=== PATIENT | male | born 1940 | race Caucasian/White ===

== ENCOUNTER 2017-03-25 15:55 | Observation (INO) | payer OTHER ==
--- NOTE | ~2017-03-25 | HP ---
History And Physical [place] [id number] [facility] [place]. [address] NAME: MALIK COOPER : 42 STATUS : ADM Laura PAT#: [id number] AGE: 76 ADM/REG DATE : 03/25/17 MR#: [id number] REPORT SERV DATE: 03/25/17 DICTATED BY: KARAN GUARDADO DATE: 03/25/17 REPORT STATUS : Draft TRANSCRIBED BY: MODL DATE: 03/25/17 DATE OF ADMISSION: 03/25/2017 CHIEF COMPLAINT: Possible stroke. HISTORY OF PRESENT ILLNESS: Obtained from patient, patient's family present at bedside, and emergency room documents, also, prior medical records available to us were thoroughly reviewed as well as the records sent over with the patient from Dr. Pennington's office, who had sent the patient to the emergency room. According to the information available, the patient is a pleasant 76-year-old white man with known history of Parkinson disease, hyperlipidemia, as well as hypertension, chronic anticoagulation, mitral valve replacement, and atrial fibrillation, who was in Dr. Pennington's office today for scheduled regular followup. The patient started to complain with numbness and left upper arm pain at 14:45 p.m., and therefore, Dr. Pennington had sent the patient to the emergency room for possible CVA versus TIA. In the emergency room, the patient was investigated and a code stroke was triggered with further investigation as directed by the protocol and by the Neurology consult present here with a CT scan of the head/brain as well as further investigation. Note that the patient was not a candidate for tPA due to his INR being 2.9 with improving of his symptoms at the time of emergency room evaluation and stay. Therefore, after the above workup and evaluation, the patient was referred to the Hospitalist Service for further management and evaluation. Presently, the patient denies any headache, denies any focal weakness, stated his numbness on the left upper extremity has 90% improved. Denies any chest pain or any palpitations. Denies any fever, chills, diaphoresis, or any new change in his regular medications. The patient denies any coughing, any dizziness, any seizure-like activity, or any weakness. No nausea or vomiting. PAST MEDICAL HISTORY: As above. 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 PAST SURGICAL HISTORY: Significant for mitral valve replacement in 08/2008, bioprosthetic valve; significant for cardiac ablation in 2008 and pacemaker placement afterwards; significant for hernia repair x4, last in 08/2008; bilateral leg vein stripping in 2008; partial prostatectomy for cancer in 2009; cholecystectomy in 2010; colonoscopy, EUS, endoscopy in 05/2014, with colon and rectal excision for cancer in 2013; subsequently the patient had another colonoscopy with polyp removal followed by Dr. Gustafson in GI. SOCIAL HISTORY: The patient is single, lives alone. He has family that helps him and takes care of him. Denies tobacco abuse, but he used to smoke in the past. Denies alcohol abuse, History And Physical [address] [address] NAME: MALIK COOPER : 42 STATUS : ADM Laura PAT#: [id number] AGE: 76 ADM/REG DATE : 03/25/17 MR#: [id number] REPORT SERV DATE: 03/25/17 DICTATED BY: KARAN GUARDADO DATE: 03/25/17 REPORT STATUS : Draft TRANSCRIBED BY: MODL DATE: 03/25/17 but also had a history of prior alcohol abuse. Denies illicit recreational drug abuse. REVIEW OF SYSTEMS: Per H and P, otherwise negative in all review of systems. Please note that the comprehensive review of system was obtained and pertinent positives are included in the H and P. ALLERGIES: NO KNOWN DRUG ALLERGIES. MEDICATIONS AT HOME: According to the list provided, the patient is supposed to take amantadine 100 mg p.o. daily, Robinul 1 mg p.o. b.i.d., Antivert 25 mg p.o. t.i.d., Toprol- XL 25 mg p.o. daily, Myrbetriq 25 mg p.o. daily., Pravachol 10 mg p.o. at bedtime, Maxzide 25 (37.5/25) one tablet p.o. b.i.d., and Nuplazid 34 mg p.o. daily, Coumadin 2 mg p.o. at bedtime or as directed. Please note also the patient reportedly takes Sinemet 25/100 one p.o. q.i.d., vitamin E 400 units p.o. daily, as well as magnesium oxide 400 mg p.o. daily. PHYSICAL EXAMINATION: GENERAL: Pleasant, cooperant, presently in no acute distress. VITAL SIGNS: Upon arrival in the emergency room, blood pressure 142/69, pulse 69, respiratory rate 16, temperature 97.1, oxygen saturation 98% in room air. HEENT: Bilateral cataracts. Extraocular movements intact. Throat, mild erythema. No exudate. No signs of tenderness. Atraumatic. NECK: Supple. No JVD. No bruits. No thyromegaly. No lymph nodes. LUNGS: Bilateral air entry with few bibasilar crackles. No wheezing. Left subclavicular pacemaker in place. HEART: Positive S1, S2. Regular rate and rhythm. Positive soft mitral regurgitation murmur at the apex. No rub. No gallop. PMI not displaced by palpation. ABDOMEN: Positive bowel sounds. Soft, nontender. No guarding. No hepatosplenomegaly. EXTREMITIES: Decreased range of motion. Osteoarthritic changes. No clubbing. No cyanosis. No edema. No calf tenderness. +1 pulses. NEUROLOGIC: Alert and oriented x3. Appropriate mood and affect. His left upper extremity 4 to 5/5 distal strength, otherwise quite symmetric and similar with right upper extremity. Otherwise, neurologic exam nonfocal with deep tendon reflexes 2/2 symmetrical bilateral, coordination mildly off [id number] but symmetrical bilateral, subjective decrease to pinprick and light touch. Left upper extremities with more paresthesias than lack of sensation, mild ataxia noticed as well. BACK: Decreased range of motion. No focal localized tenderness. No CVA tenderness. SKIN: No bruises. No rashes. No lacerations. SIGNIFICANT LABORATORY DATA: Chest x-ray (personal reading) showed no acute infiltrate. EKG (personal reading) showed ventricular paced rhythm at 67. No further analysis possible. White cell count 4.4, hemoglobin 14.8, platelet count 113, INR 2.9. Sodium 133, potassium 3.7, chloride 100, bicarb 31, BUN 14, creatinine 0.85, glucose 94, calcium 9. Liver function tests within normal limits. Troponin I was 0.02. CT scan of the head/brain with a stroke protocol showed no acute intracranial abnormality. Moderate cortical volume loss with [id number] chronic deep white matter ischemic changes (minimally progressed since 05/2014). History And Physical [address] [address] NAME: MALIK COOPER : 42 STATUS : ADM Laura PAT#: [id number] AGE: 76 ADM/REG DATE : 03/25/17 MR#: [id number] REPORT SERV DATE: 03/25/17 DICTATED BY: KARAN GUARDADO DATE: 03/25/17 REPORT STATUS : Draft TRANSCRIBED BY: MODL DATE: 03/25/17 ASSESSMENT AND PLAN/PROBLEM LIST: The patient is a pleasant 76-year-old white man admitted with symptoms suggestive of possible CVA versus transient ischemic attack, presently improving. Not a candidate for tPA due to his elevated INR. IMPRESSION: 1. Neurologic problem. a. Left arm numbness, paresthesia, and possible weakness with diagnosis of possible acute CVA versus transient ischemic attack. b. Parkinson disease. c. Chronic ischemic white matter disease. For all the above, patient has been admitted on the Hospitalist Service under neurologic stroke unit with neurologic checks as per Neurology evaluation. We are going to continue blood pressure control. We are going to continue anticoagulation with Coumadin and add as tolerated aspirin/antiplatelet agent 81 mg daily. We are going to increase Pravachol if tolerated for statin therapy. Continue neurologic checks, Physical Therapy evaluation. 1. Cardiovascular. a. Hypertension, essential hypertension. b. Arrhythmia with chronic atrial fibrillation, present on admission, status post permanent pacemaker placement for AV block. c. Status post mitral valve replacement, bioprosthetic for mitral valve regurgitation in the past. d. Peripheral vascular disease and history of carotid artery disease. For all the above, we are going to continue patient's blood pressure management with rather "permissive hypertension" for now with use IV hydralazine p.r.n. for extreme elevated blood pressure. We are going to continue to monitor CK and troponin I, monitor EKG. Add aspirin 81 mg daily at home dose. 1. Hematologic problem:. a. Chronic anticoagulation, on Coumadin for atrial fibrillation, to be continued, target INR between 2 and 3. b. Thrombocytopenia as well as mild neutropenia, chronic and presently stable. 2. Endocrinologic problem:. a. Hyperlipidemia, mixed type. Continue Pravachol, check lipid profile. b. Diabetes type 2, diet controlled. Not insulin-dependent without complications. We are going to monitor blood sugar with fingerstick for now, sliding scale as needed. Check hemoglobin A1c. 3. Miscellaneous:. a. History of colon cancer. b. History of prostate cancer. PROGNOSIS: Moderately good for this admission. Discussed with patient. Questions were answered in full. Please note, also the written H and P, and written orders and instructions. Please note, the patient is a full code at this moment, was discussed with the patient at bedside. History And Physical [address] [address] NAME: MALIK COOPER : 42 STATUS : ADM Laura PAT#: [id number] AGE: 76 ADM/REG DATE : 03/25/17 MR#: [id number] REPORT SERV DATE: 03/25/17 DICTATED BY: KARAN GUARDADO DATE: 03/25/17 REPORT STATUS : Draft TRANSCRIBED BY: CLYDE DATE: 03/25/17 RF/CLYDE Karan Guardado M.D. / [id number] CC: Joseluis Moore M.D. Alexander Stratienko, M.D. Cornelius Mance, M.D.
--- NOTE | ~2017-03-25 | DS ---
Discharge Summary [place] [id number] [place]. [address] NAME: MALIK COOPER : 42 STATUS : DIS Laura PAT#: [id number] AGE: 76 ADM/REG DATE : 03/25/17 MR#: [id number] REPORT SERV DATE: 03/30/17 DICTATED BY: LUZ CASTANEDA DATE: 03/27/17 REPORT STATUS : Draft TRANSCRIBED BY: CLYDE DATE: 03/27/17 ADMISSION DATE: 03/25/2017 DISCHARGE DATE: 03/27/2017 DISCHARGE DIAGNOSES: 1. Transient ischemic attack. 2. Left arm paresthesia, resolved. 3. Chronic ischemic cerebrovascular accident. 4. Parkinson disease. 5. Hypertension. 6. Chronic atrial fibrillation, status post permanent pacemaker for atrioventricular block. 7. Status post mitral valve replacement with a bioprosthetic valve. 8. History of carotid artery disease. 9. Hyperlipidemia. 10.Diabetes mellitus type 2. 11.History of colon cancer. 12.History of prostate cancer. DISCHARGE CONDITION: Stable. CONSULTATION: Neurology, Dr. Gorman. IMAGING: CT head and neck: 1. No acute intracranial abnormality appreciated. 2. Moderate cortical volume loss and findings compatible with [id number] chronic deep white matter ischemic changes. CTA head and neck. Impression: 1. Unremarkable appearance of the intracranial arterial circulation. 2. No acute intracranial abnormality appreciated. 3. Moderate cortical volume loss and findings compatible with chronic deep white matter ischemic changes. 4. Widely patent carotid and vertebral arteries bilaterally. There is minimal calcific plaque at the carotid bulbs bilaterally which is nonobstructing. HISTORY OF PRESENT ILLNESS: For detailed HPI, make reference to Dr. Karan Guardado's dictation on 03/25/2017. In brief, this is a 76-year-old male with medical history of Parkinson disease, hyperlipidemia, hypertension, on chronic anticoagulation for mitral valve replacement and chronic atrial fibrillation, who presented to Dr. Pennington's office (primary rotary engraver) for routine followup. While at his primary rotary engraver's office, complained of numbness of the left upper arm and weakness. He was sent to the emergency room for CVA versus TIA rule out. In the ER, the patient underwent a CT scan of the head and brain that shows no evidence of acute cerebrovascular accident. The patient was noted not to be a tPA candidate as his INR was 2.9. In the ER, vital signs; blood pressure was 142/69, pulse rate was 69, respiratory rate was 16, temperature was 97.1, saturating 98% on room air. Physical exam was noted for left upper extremity of 5/5 strength and right lower Discharge Summary [place] [address] [facility] [place] [address] NAME: MALIK COOPER : 42 STATUS : DIS Laura PAT#: [id number] AGE: 76 ADM/REG DATE : 03/25/17 MR#: [id number] REPORT SERV DATE: 03/30/17 DICTATED BY: LUZ CASTANEDA DATE: 03/27/17 REPORT STATUS : Draft TRANSCRIBED BY: CLYDE DATE: 03/27/17 extremity also 5/5 strength. He was alert and oriented x3. Also noted was positive soft mitral regurgitation murmur. Rest of the exam was essentially within normal limits. The patient was admitted to the Hospitalist Service for TIA. HOSPITAL COURSE: 1. TIA. Neurology was consulted. Recommended to add aspirin and Plavix to the patient's medication. The patient's chronic anticoagulation was continued. The patient had no recrudescence of any focal deficit. At the time of discharge, only positive finding in neurological exam was resting tremor that was in keeping with the patient's known Parkinson disease. No focal deficit noted. The patient was discharged home to continue follow up with primary care physician, primary neurologist, and primary rotary engraver. 2. Chronic atrial fibrillation on chronic anticoagulation with warfarin. The patient's warfarin was continued during the course of this admission. At the time of discharge, the patient's INR was 3.3. The patient was advised to hold Coumadin for the next 24 hours and follow up with primary rotary engraver for INR check here before restarting and to recommence warfarin at the prescribed dose. DISCHARGE ACTIVITIES: As tolerated. Greater than 30 minutes was used to prepare this patient's discharge, reconcile medication, and advise the patient on discharge plans and followup. DICTATED BY: MD CHRISTIE Appiah/CLYDE Luz Castaneda MD / [id number] CC: MD Ann Appiah M.D.
[~2017-03-25 15:55] MED LIST: ASAB PO; C1 PO; C2 PO; CALCIUM + D OTC PO; CALTRAT600 PO; CHROMIUM PICOLINATE PO; ESTER-C500 MG PO; FISH-EPA1000 MG PO; FLAXSEED OIL1000 MG PO; FLOMAX4 PO; FOLIC ACID800 MCG PO; HALF81 PO; K-TABS10 MEQ PO; K500 PO; KLOR-CON M2020 MEQ PO; L40 PO; LOM PO; LOP50 PO; LORTAB 5 PO; MAX25 PO; MAXZIDE PO; MCZ25 PO; MULTIPLE VIT PO; MULTIVIT/MIN PO; MULTIVITAMI1 PO; MYRBETRIQ25 MG PO; PRAV10 PO; PRIN5 PO; SIN10 PO; SINCR25100 PO; STRESSTAB2 PO; TOPXL25 PO; TOPXL50 PO; VESICARE5 PO; VICODIN 5/325MG PO; VITAMIN C100 MG PO; VITAMIN D31000 UNIT PO; VITC500 PO; VITE PO
[2017-03-25 16:25] LABS: BASOPHILS 0.5 %; BASOPHILS ABSOLUTE 0.02 10/3/uL (0.0-0.16); EOSINOPHILS 2.3 %; ER CBC TAT 0 Hrs 03 Mins; HEMATOCRIT 42.5 % (40.0-51.0); HEMOGLOBIN 14.8 g/dL (13.6-17.8); IMMATURE GRANULOCYTES 0.2 %; IMMATURE GRANULOCYTES ABSOLUTE 0.01 10/3/uL (0.0-0.11); LYMPHOCYTES 31.4 %; LYMPHOCYTES ABSOLUTE 1.37 10/3/uL (0.67-4.30); MANUAL DIFF NO %; MEAN CORPUS HGB CONC 34.8 g/dL (32.0-36.0); MEAN CORPUSCULAR VOLUME 88.9 fL (80-100); MEAN PLATELET VOLUME 11.8 fL (9.2-13.0); MONOCYTES 10.6 %; MONOCYTES ABSOLUTE 0.46 10/3/uL (0.21-1.20); PLATELET COUNT 113 10/3/uL (150-400); RED CELL COUNT 4.78 10/6/uL (4.7-6.1); WHITE BLOOD CELLS 4.4 10/3/uL (4.5-10.5)
[2017-03-25 16:33] LABS: INTERNATIONAL NORMAL RATI 2.9 UNITS (-); PROTIME (NOT ORD) 30.1 SEC (12.0-14.5)
[2017-03-25 16:42] LABS: A/G RATIO 1.1 (0.7-1.9); ALBUMIN 3.9 G/DL (3.5-5.0); ALKALINE PHOSPHATASE 90 U/L (45-117); BUN (BLOOD UREA NITROGEN) 14 MG/DL (6-23); CHLORIDE, SERUM 100 MMOL/L (96-112); CO2 (CARBON DIOXIDE) 31 MMOL/L (24-34); CREATININE 0.85 MG/DL (0.70-1.30); GFR AFRICAN AMERICAN 99 ML/MIN (>=60); GFR NON AFRICAN AMERICAN 85 ML/MIN (>=60); GLOBULIN 3.5 G/DL (2.5-4.1); GLUCOSE, SERUM 94 MG/DL (60-99); POTASSIUM, SERUM 3.7 MMOL/L (3.5-5.3); SGOT(AST) 29 U/L (5-40); SGPT(ALT) 13 U/L (5-65); SODIUM, SERUM 138 MMOL/L (135-148); TOTAL BILIRUBIN 0.6 MG/DL (0-1.2); TOTAL PROTEIN 7.4 G/DL (6.0-8.5)
[2017-03-25] MEDS ORDERED: MYRBETRIQ25 MG PO (16:51)
[2017-03-25] MEDS ORDERED: LIPITOR40 PO (16:52)
[2017-03-25] MEDS ORDERED: SYMM100 PO (16:53)
[2017-03-25] MEDS ORDERED: NUPLAZID 17 MG PO (16:56)
[2017-03-25] MEDS ORDERED: ROB1T PO (16:57)
[2017-03-25] MEDS ORDERED: MAX25 PO (16:57)
[2017-03-25] MEDS ORDERED: TOPXL25 PO (16:57)
[2017-03-25] MEDS ORDERED: MCZ25 PO (16:58)
[2017-03-25] MEDS ORDERED: C2 PO (16:58)
[2017-03-25 17:06] LABS: TROPONIN I <0.02 NG/ML (<0.05)
[2017-03-25 22:34] LABS: TROPONIN I <0.02 NG/ML (<0.05)
[2017-03-25 22:37] LABS: CK-MB 1.6 NG/ML; CPK 212 U/L (0-200)
[2017-03-25 22:41] LABS: CHOL/HDL RATIO(NOT ORDER) 2.8 (0-5); CHOLESTEROL 122 MG/DL (< 200); HDL CHOLESTEROL 43 MG/DL (> 39); LDL CHOLESTEROL 23 MG/DL (< 130); NON-HDL CHOLESTEROL 79 MG/DL (< 160); PHOSPHORUS, SERUM 3.6 MG/DL (2.5-4.5); TRIGLYCERIDE 280 MG/DL (< 150)
[2017-03-25 22:44] LABS: FOLATE 29.9 NG/ML (>5.2)
[2017-03-25 23:09] LABS: WBC (NOT ORDERED) (RFLEX) 0 (0-5)
[2017-03-26 01:13] LABS: ASCORBIC ACID (UR NOT ORDER) NEG (NEG); BILIRUBIN, URINE NEGATIVE (NEG); KETONE, URINE NEGATIVE (NEG); LEUKOCYTE ESTERASE(NOT OR NEG (NEG)
[2017-03-26 08:13] LABS: INTERNATIONAL NORMAL RATI 3.2 UNITS (-); PROTIME (NOT ORD) 32.8 SEC (12.0-14.5)
[2017-03-26 08:41] LABS: TROPONIN I <0.02 NG/ML (<0.05)
[2017-03-26 08:43] LABS: CPK 109 U/L (0-200)
[2017-03-26 12:15] LABS: CREATININE 0.8 MG/DL (0.70-1.30)
[2017-03-26 14:57] LABS: CPK 111 U/L (0-200); TROPONIN I <0.02 NG/ML (<0.05)
[2017-03-26 14:58] LABS: CK-MB 0.9 NG/ML
[2017-03-27 07:25] LABS: BASOPHILS 0.6 %; BASOPHILS ABSOLUTE 0.02 10/3/uL (0.0-0.16); EOSINOPHILS ABSOLUTE 0.11 10/3/uL (0.0-0.53); HEMATOCRIT 40.3 % (40.0-51.0); HEMOGLOBIN 13.5 g/dL (13.6-17.8); LYMPHOCYTES 27.9 %; LYMPHOCYTES ABSOLUTE 1.01 10/3/uL (0.67-4.30); MANUAL DIFF NO %; MEAN CORPUS HGB CONC 33.5 g/dL (32.0-36.0); MEAN CORPUSCULAR HEMOGLOB 30.2 pg (26.0-34.0); MEAN CORPUSCULAR VOLUME 90.2 fL (80-100); MEAN PLATELET VOLUME 11.5 fL (9.2-13.0); MONOCYTES 9.7 %; MONOCYTES ABSOLUTE 0.35 10/3/uL (0.21-1.20); NEUTROPHILS 58.8 %; NEUTROPHILS ABSOLUTE 2.13 10/3/uL (2.02-8.40); PLATELET COUNT 100 10/3/uL (150-400); RBC DISTRIBUTION WIDTH 13.1 % (12.0-16.0); RED CELL COUNT 4.47 10/6/uL (4.7-6.1); WHITE BLOOD CELLS 3.6 10/3/uL (4.5-10.5)
[2017-03-27 07:33] LABS: INTERNATIONAL NORMAL RATI 3.3 UNITS (-); PROTIME (NOT ORD) 33.6 SEC (12.0-14.5)
[2017-03-27 07:41] LABS: BUN (BLOOD UREA NITROGEN) 15 MG/DL (6-23); CALCIUM, SERUM 8.5 MG/DL (8.5-10.4); CHLORIDE, SERUM 105 MMOL/L (96-112); CO2 (CARBON DIOXIDE) 28 MMOL/L (24-34); CREATININE 0.67 MG/DL (0.70-1.30); GFR AFRICAN AMERICAN 109 ML/MIN (>=60); GFR NON AFRICAN AMERICAN 94 ML/MIN (>=60); GLUCOSE, SERUM 86 MG/DL (60-99); PHOSPHORUS, SERUM 3.1 MG/DL (2.5-4.5); POTASSIUM, SERUM 3.7 MMOL/L (3.5-5.3); SODIUM, SERUM 141 MMOL/L (135-148)
[2017-03-27] MEDS ORDERED: ASAB PO (14:29)
== END 2017-03-27 16:12 | disposition home or self-care (01) ==
LOC: ER 15:55 → CDU1 18:35 → ER/OF 18:52 → 1SO 19:17
PROVIDERS: Emergency Medicine; Hospitalist; Internal Medicine
DX: G45.9 Transient cerebral ischemic attack, unspecified (principal); I10 Essential (primary) hypertension; I44.2 Atrioventricular block, complete; C18.9 Malignant neoplasm of colon, unspecified; I48.91 Unspecified atrial fibrillation; I34.0 Nonrheumatic mitral (valve) insufficiency; I65.23 Occlusion and stenosis of bilateral carotid arteries; M79.606 Pain in leg, unspecified; R06.00 Dyspnea, unspecified; I25.118 Atherosclerotic heart disease of native coronary artery with other forms of angina pectoris; E78.00 Pure hypercholesterolemia, unspecified; R53.83 Other fatigue; I99.8 Other disorder of circulatory system; I73.9 Peripheral vascular disease, unspecified; I42.8 Other cardiomyopathies; I48.0 Paroxysmal atrial fibrillation; I12.0 Hypertensive chronic kidney disease with stage 5 chronic kidney disease or end stage renal disease; G20 Parkinson's disease; Z95.0 Presence of cardiac pacemaker; E78.5 Hyperlipidemia, unspecified; E11.9 Type 2 diabetes mellitus without complications; Z90.49 Acquired absence of other specified parts of digestive tract; Z79.899 Other long term (current) drug therapy; Z85.46 Personal history of malignant neoplasm of prostate; Z85.038 Personal history of other malignant neoplasm of large intestine
CPT/HCPCS: 36415; 70450; 70496; 70498; 71010; 80048; 80053; 80061; 81001; 82550; 82553; 82607; 82746; 82962; 83036; 83735; 84100; 84484; 85025; 85610; 85730; 86850; 86900; 86901; 92523-GN; 93005; 97162-GP; 97165-GO; 99291; A9270-GY; G0378; Q9967

== ENCOUNTER 2017-03-27 23:00 | Emergency (ER) | payer OTHER ==
[2017-03-27 21:54] LABS: BASOPHILS 0.7 %; BASOPHILS ABSOLUTE 0.03 10/3/uL (0.0-0.16); EOSINOPHILS 2.6 %; EOSINOPHILS ABSOLUTE 0.12 10/3/uL (0.0-0.53); ER CBC TAT 0 Hrs 03 Mins; HEMATOCRIT 43.5 % (40.0-51.0); HEMOGLOBIN 14.6 g/dL (13.6-17.8); IMMATURE GRANULOCYTES 0.2 %; IMMATURE GRANULOCYTES ABSOLUTE 0.01 10/3/uL (0.0-0.11); LYMPHOCYTES 31.2 %; LYMPHOCYTES ABSOLUTE 1.44 10/3/uL (0.67-4.30); MANUAL DIFF NO %; MEAN CORPUS HGB CONC 33.6 g/dL (32.0-36.0); MEAN CORPUSCULAR HEMOGLOB 30.5 pg (26.0-34.0); MEAN CORPUSCULAR VOLUME 90.8 fL (80-100); MEAN PLATELET VOLUME 11.7 fL (9.2-13.0); MONOCYTES 8.5 %; MONOCYTES ABSOLUTE 0.39 10/3/uL (0.21-1.20); NEUTROPHILS 56.8 %; NEUTROPHILS ABSOLUTE 2.62 10/3/uL (2.02-8.40); PLATELET COUNT 120 10/3/uL (150-400); RED CELL COUNT 4.79 10/6/uL (4.7-6.1); WHITE BLOOD CELLS 4.6 10/3/uL (4.5-10.5)
[2017-03-27 22:02] LABS: INTERNATIONAL NORMAL RATI 2.5 UNITS (-); PARTIAL THROMBO TIME 35.9 SEC (22.5-37.2)
[2017-03-27 22:05] LABS: PROTIME (NOT ORD) 26.5 SEC (12.0-14.5)
[2017-03-27 22:08] LABS: A/G RATIO 1.1 (0.7-1.9); ALBUMIN 3.7 G/DL (3.5-5.0); ALKALINE PHOSPHATASE 72 U/L (45-117); BUN (BLOOD UREA NITROGEN) 20 MG/DL (6-23); CALCIUM, SERUM 8.9 MG/DL (8.5-10.4); CHLORIDE, SERUM 104 MMOL/L (96-112); CO2 (CARBON DIOXIDE) 30 MMOL/L (24-34); CREATININE 0.93 MG/DL (0.70-1.30); GFR AFRICAN AMERICAN 93 ML/MIN (>=60); GFR NON AFRICAN AMERICAN 80 ML/MIN (>=60); GLOBULIN 3.5 G/DL (2.5-4.1); GLUCOSE, SERUM 129 MG/DL (60-99); POTASSIUM, SERUM 4.4 MMOL/L (3.5-5.3); SGOT(AST) 26 U/L (5-40); SGPT(ALT) 13 U/L (5-65); SODIUM, SERUM 139 MMOL/L (135-148); TOTAL BILIRUBIN 0.7 MG/DL (0-1.2); TOTAL PROTEIN 7.2 G/DL (6.0-8.5)
[~2017-03-27 23:00] MED LIST changes: +LIPITOR40 PO; +NUPLAZID 17 MG PO; +ROB1T PO; +SYMM100 PO
[2017-03-27 23:59] LABS: ASCORBIC ACID (UR NOT ORDER) NEG (NEG); BILIRUBIN, URINE NEGATIVE (NEG); ER URINALYSIS TAT 0 Hrs 00 Mins; KETONE, URINE TRACE MG/DL (NEG); NITRITE (URINE) NEG (NEG); WBC (NOT ORDERED) (RFLEX) > 182 (0-5)
[2017-03-28] LABS: LEUKOCYTE ESTERASE(NOT OR MOD (NEG)
== END 2017-03-28 02:20 | disposition home or self-care (01) ==
LOC: ER 23:00
PROVIDERS: Nurse Practitioner
DX: N39.0 Urinary tract infection, site not specified (principal); I10 Essential (primary) hypertension; I48.91 Unspecified atrial fibrillation; E11.9 Type 2 diabetes mellitus without complications; I25.10 Atherosclerotic heart disease of native coronary artery without angina pectoris; Z86.73 Personal history of transient ischemic attack (TIA), and cerebral infarction without residual deficits; Z85.46 Personal history of malignant neoplasm of prostate; Z85.038 Personal history of other malignant neoplasm of large intestine; G20 Parkinson's disease; Z79.01 Long term (current) use of anticoagulants; Z79.82 Long term (current) use of aspirin; Z79.899 Other long term (current) drug therapy
CPT/HCPCS: 80053; 81001; 85025; 85610; 85730; 87086; 96374; 99283